=== PATIENT | male | born 1940 | race Asian ===

== ENCOUNTER 2017-08-01 06:25 | Day surgery (SDC) | payer OTHER, MEDICARE ==
[2017-07-31 08:22] VITALS: BMI 28.8
[~2017-08-01 06:25] MED LIST: BSS (NA/CA/MG/K) BALANCED SALT SOLUTION OPHTH SOLN 15 ML BOTTLE OS ONE; CHONDROITIN SU A/HYALUR SOD 1 KIT IO ONE; EPINEPHrine/PF 1 MG/1 ML (1:1,000) AMPULE IO ONE; LIDOCAINE HCL 1% PRESERVATIVE FREE - 30ML VIAL IO ONE; POVIDONE-IODINE 5% OPHTHALMIC PREP 30 ML SOLUTION OS ONE; TRYPAN BLUE 0.5 ML DISP.SYRIN IO ONE
[2017-08-01] MEDS: CYCLOPENTOLATE HCL 1% OPHTH SOLN 2 ML BOTTLE ONE ×3 (06:50→07:15)
[2017-08-01] MEDS: CIPROFLOXACIN 0.3% EYE DROPS 5 ML BOTTLE ONE ×3 (06:50→07:15)
[2017-08-01] MEDS: FLURBIPROFEN 0.03% OPHTH SOLN 2.5 ML BOTTLE ONE ×3 (06:50→07:15)
[2017-08-01] MEDS: TROPICAMIDE 1% OPHTH SOLN 15 ML BOTTLE ONE ×3 (06:50→07:15)
[2017-08-01] MEDS: PHENYLEPHRINE 2.5% OPHTH SOLN 15 ML BOTTLE ONE ×3 (06:50→07:15)
[2017-08-01 07:08] VITALS: TEMP 97.8
[2017-08-01] MEDS ORDERED: WATER FOR INJ,STERILE 10 ML ONE (07:18)
[2017-08-01] MEDS ORDERED: LIDOCAINE HCL/PF 1% SDV 5ML VIAL ONE (07:18)
[2017-08-01] MEDS ORDERED: EPINEPHrine/PF 1 MG/1 ML (1:1,000) AMPULE ONE (07:18)
[2017-08-01] MEDS ORDERED: VANCOMYCIN 500 MG VIAL (RESTRICTED TO ID ONLY) ONE (07:18)
[2017-08-01] MEDS ORDERED: TETRACAINE 0.5% OPHTH SOLN 2 ML BOTTLE ONE (07:18)
[2017-08-01] MEDS ORDERED: POVIDONE-IODINE 5% OPHTHALMIC PREP 30 ML SOLUTION ONE (07:19)
[2017-08-01] MEDS ORDERED: TRYPAN BLUE 0.5 ML DISP.SYRIN ONE (07:24)
[2017-08-01] MEDS ORDERED: ACETAMINOPHEN 325 MG TABLET (FP) PO PRN (07:50)
[2017-08-01] MEDS ORDERED: FLURBIPROFEN 0.03% OPHTH SOLN 2.5 ML BOTTLE OP SCH (08:00)
[2017-08-01] MEDS ORDERED: TROPICAMIDE 1% OPHTH SOLN 15 ML BOTTLE OP SCH (08:00)
[2017-08-01] MEDS ORDERED: TETRACAINE 0.5% OPHTH SOLN 2 ML BOTTLE OS ONE (08:00)
[2017-08-01] MEDS ORDERED: PHENYLEPHRINE 2.5% OPHTH SOLN 15 ML BOTTLE OP SCH (08:00)
[2017-08-01] MEDS ORDERED: CYCLOPENTOLATE HCL 1% OPHTH SOLN 2 ML BOTTLE OP SCH (08:00)
[2017-08-01] MEDS ORDERED: CIPROFLOXACIN HCL 0.3% OPHTH 2.5ML BOTTLE OP SCH (08:00)
[2017-08-01] MEDS ORDERED: MIDAZOLAM HCL 2 MG/2 ML SINGLE DOSE VIAL ONE (08:08)
[2017-08-01] MEDS ORDERED: POVIDONE-IODINE 5% OPHTHALMIC PREP 30 ML SOLUTION OS ONE (08:11)
[2017-08-01] MEDS ORDERED: LACTATED RINGERS SOLUTION 1,000 ML IV SCH (08:15)
[2017-08-01] MEDS ORDERED: TRYPAN BLUE 0.5 ML DISP.SYRIN IO ONE (08:20)
[2017-08-01] MEDS ORDERED: BSS (NA/CA/MG/K) BALANCED SALT SOLUTION OPHTH SOLN 15 ML BOTTLE OS ONE (08:20)
[2017-08-01] MEDS ORDERED: LIDOCAINE HCL 1% PRESERVATIVE FREE - 30ML VIAL IO ONE (08:20)
[2017-08-01] MEDS ORDERED: CHONDROITIN SU A/HYALUR SOD 1 KIT IO ONE (08:20)
[2017-08-01] MEDS ORDERED: EPINEPHrine/PF 1 MG/1 ML (1:1,000) AMPULE IO ONE (08:28)
--- NOTE | 2017-08-01 09:16 | SPEC ---
DATE OF OPERATION: DATE OF DICTATION: 08/01/2017 OPERATION: Phacoemulsification of left cataract, capsular staining with Trypan blue and intraocular lens implantation, lens used [id number], 18.0 Diopter power, Serial No. [id number]. PREOPERATIVE DIAGNOSIS: Cataract left eye. POSTOPERATIVE DIAGNOSIS: Cataract left eye. SURGEON: Dewey Portillo M.D. ANESTHESIA: Topical MAC. COMPLICATIONS: None. PROCEDURE: The patient was brought to the operating room and correctly identified along with the operative site as well as correct intraocular lens hopper. The patient was then prepped and draped in the usual sterile fashion including 5% Betadine solution in the conjunctival sac and an eyelid drape. An eyelid speculum was then placed into the operative eye. The eye was inspected and a poor red reflex was noted. A paracentesis port was created and .5 mL of intracameral preservative-free Lidocaine 1% was given. Beneath an air bubble, the capsule was then stained with Trypan blue. The Trypan blue was then irrigated from the eye with balanced salt solution (BBS). Viscoelastic was injected to inflate the anterior chamber. A temporal clear corneal would was created. A continuous circular capsulorrhexis was performed. The nucleus was then hydro-dissected and hydro-delineated was BSS and removed with phacoemulsification via [id number] approach. The remaining cortical material was irrigated and aspirated from the eye. Viscoelastic was injected in the anterior chamber to inflate the capsular bag. The intraocular lens was then injected into the bag. The Viscoelastic was irrigated and aspirated from the eye. All wounds were tested and found to be watertight. No suture was placed. The intraocular lens was noted to be well centered and covered by the anterior capsular border. Topical Vancomycin was given. The eye was patched and shielded. The patient was discharged from the operating room in stable condition. Joshua OVALLES/[id number]
[2017-08-01 09:57] VITALS: BP 129/60; PULSE 51
== END 2017-08-01 09:45 | disposition home or self-care (01) ==
LOC: JASU-SURG 06:25
PROVIDERS: ATTEND Ophthalmology
PROC: 08RK3JZ Replacement of Left Lens with Synthetic Substitute, Percutaneous Approach (ICD-10-PCS; principal; 2017-08-01 08:00)
DX: H26.9 Unspecified cataract (principal)
CPT/HCPCS: 82962